=== PATIENT | male | born 1940 | race Caucasian/White ===

== ENCOUNTER 2017-01-04 14:45 | Inpatient (IN) | payer MEDICARE ==
[~2017-01-04] VITALS: Ht 175.3 cm; Wt 79.2 kg
[2017-01-10] MEDS ORDERED: FLUT1INH INH (11:48)
[2017-01-10] MEDS ORDERED: POTA10TA2 PO (11:48)
[2017-01-10] MEDS ORDERED: DORZ2SOL EACH EYE (11:48)
[2017-01-10] MEDS ORDERED: BRIM0.155 EACH EYE (11:48)
[2017-01-10] MEDS ORDERED: ROSU10 PO (11:48)
[2017-01-10] MEDS ORDERED: OCUVTAB4 PO (11:48)
[2017-01-10] MEDS ORDERED: ZOLP5TAB3 PO (11:48)
[2017-01-10] MEDS ORDERED: TRAV0.00 EACH EYE (11:48)
[2017-01-10] MEDS ORDERED: TIOT12.9 INH (11:48)
[2017-01-10] MEDS ORDERED: FURO20TA PO (11:48)
[2017-01-10] MEDS ORDERED: ALBU1AER5 INH (11:48)
[2017-01-10] MEDS ORDERED: MULT1TAB84 PO (11:48)
[2017-01-10] MEDS ORDERED: PROC90TA PO (11:48)
[2017-01-10] MEDS ORDERED: FLUT250A INH (11:48)
[2017-01-11] MEDS ORDERED: DEXAMETHASONE SOD PHOS 20 MG/5 ML VIAL ONE (05:38)
[2017-01-11] MEDS ORDERED: ceFAZolin 2 GM PREMIX 50 ML ONE (05:38)
[2017-01-11] MEDS ORDERED: SODIUM CHLOR 0.9% 250 ML INJ 250 ML ONE (05:38)
[2017-01-11] MEDS ORDERED: VANCOMYCIN HCL 1000 MG VIAL ONE (05:39)
[2017-01-11 05:55] VITALS: BP 150/76; PULSE 85; RESP 22; TEMP 97.8; O2SAT 94
[2017-01-11] MEDS ORDERED: GENTAMICIN SULFATE 80 MG/2 ML VIAL ONE (06:14)
[2017-01-11] MEDS ORDERED: TRANEXAMIC ACID INJ 786 MG in SODIUM CHLORIDE 0.9% INJ 100 ML IV SCH ×2 (06:30→10:00)
[2017-01-11] MEDS ORDERED: ceFAZolin 2 GM PREMIX 50 ML IV SCH (06:30)
[2017-01-11] MEDS ORDERED: VANCOMYCIN 1000 MG/NS 250 ML (for <70 kg) IV SCH ×2 (06:30)
[2017-01-11] MEDS ORDERED: EXPAREL PERI-ARTICULAR INJECTION (TOTAL VOL. 60 ML) P-ARTICULR SCH ×2 (06:30)
[2017-01-11] MEDS ORDERED: POVIDONE IODINE 7.5% SCRUB 118 ML BOTTLE TOPICAL SCH (06:30)
[2017-01-11] MEDS ORDERED: MIDAZOLAM HCL 2 MG/2 ML VIAL ONE (06:38)
[2017-01-11] MEDS ORDERED: FAMOTIDINE 20 MG/2 ML VIAL ONE (06:38)
[2017-01-11] MEDS ORDERED: fentaNYL CITRATE 250 MCG/5 ML AMP ONE (06:43)
[2017-01-11] MEDS ORDERED: ACETAMINOPHEN 1000 MG/100 ML VIAL IV ONE (06:43)
--- NOTE | 2017-01-11 06:44 | HHI.DCPOC ---
Discharge Care Plan Diagnosis: (1) Status post total hip replacement, right (2) Osteoarthritis of right hip Your Health Problems Are: Difficulty with ADL Goals to Promote Your Health * To prevent worsening of your condition and complications * To maintain your health at the optimal level Directions to Meet Your Goals Take your medications as prescribed Follow your dietary instruction Follow activity as directed Keep your appointments as scheduled Take your immunizations and boosters as scheduled If your symptoms worsen call your PCP, if no PCP go to Urgent Care Center or Emergency Room Smoking is Dangerous to Your Health. Avoid second hand smoke Call the 24-hour hour crisis hotline for domestic abuse at [facility] January 11, 2017 06:44
[2017-01-11] MEDS ORDERED: MIDAZOLAM HCL 5 MG/5 ML VIAL ONE (06:45)
--- NOTE | 2017-01-11 06:45 | HHI.FF ---
Face to Face Verification Diagnosis: (1) Osteoarthritis of right hip (2) Status post total hip replacement, right Physical Therapy Gait training, Transfer training, bed to chair Hip: Total hip Right LE Weight Bearing: WB as tolerated Right LE Range of Motion: Active ROM Nursing Nursing: Madhuri teaching, Dressing changes Dressing Changes: Daily dressing change I have seen patient Carlitos Alves on 01/11/17. My clinical findings support the need for the requested home health care services because: Limited ability to care for self High risk of falls I certify that my clinical findings support that this patient is homebound because: Post-op weakness Unsteady gait/balance [place] [facility] January 11, 2017 06:45
[2017-01-11] MEDS ORDERED: COMMODE 3-IN-11 MIS (06:47)
[2017-01-11] MEDS ORDERED: WALKER WHEELS/F1 MIS (06:47)
[2017-01-11] MEDS ORDERED: CHLORHEXIDINE GLUCONATE 2 % 1 PACK (2 CLOTHS) TOPICAL PRN (07:30)
[2017-01-11] MEDS ORDERED: POVIDONE IODINE 5% (ANTISEPSIS KIT) 4 APPLICATIONS EACH NARE PRN (07:30)
[2017-01-11] MEDS ORDERED: METOPROLOL TARTRATE 25 MG TAB PO PRN (07:30)
[2017-01-11] MEDS ORDERED: INSULIN HUMAN REGULAR 1,000 UNITS/10 ML VIAL SQ PRN (07:30)
[2017-01-11] MEDS ORDERED: LACTATED RINGER'S 1000 ML IV PRN (07:30)
[2017-01-11] MEDS ORDERED: SODIUM CHLORID 0.9% 500 ML IV PRN (07:30)
[2017-01-11] MEDS ORDERED: ALUMINUM/MAGNESIUM/SIMETH 30 ML CUP PO PRN (09:00)
[2017-01-11] MEDS ORDERED: MAGNESIUM HYDROXIDE SUSP 30 ML CUP PO PRN (09:00)
[2017-01-11] MEDS: TIOTROPIUM BROMIDE 18 MCG INH INH SCH (09:00)
[2017-01-11] MEDS ORDERED: ZOLPIDEM TARTRATE 5 MG TAB PO PRN (09:00)
[2017-01-11] MEDS ORDERED: BISACODYL 10 MG SUPP RECTAL PRN (09:00)
[2017-01-11] MEDS: POTASSIUM CHLORIDE 10 MEQ CONTROLLED RELEASE TAB PO SCH ×2 (09:00→20:22)
[2017-01-11] MEDS ORDERED: Post-op Orders (for Pharmacy) MISC XX ONE (09:00)
[2017-01-11] MEDS ORDERED: SODIUM CHLORIDE 0.9% FLUSH 5 ML FLUSH IVF PRN (09:00)
[2017-01-11] MEDS ORDERED: ALBUTEROL SULFATE 90 MCG/ACT HFA 18 GM INHALER INH PRN (09:00)
[2017-01-11] MEDS: SODIUM CHLORIDE 0.9% FLUSH 5 ML FLUSH IVF SCH ×2 (09:00→20:21)
[2017-01-11] MEDS: FLUTICASONE 100 MCG/VILANTEROL 25 MCG INHALER INH SCH (09:00)
[2017-01-11] MEDS ORDERED: ONDANSETRON HCL 4 MG/2 ML VIAL IVP PRN (09:00)
[2017-01-11] MEDS ORDERED: NALOXONE HCL 0.4 MG/ML AMP IV PRN (09:00)
[2017-01-11] MEDS: FUROSEMIDE 20 MG TAB PO SCH ×2 (09:00→20:22)
[2017-01-11] MEDS: BRIMONIDINE TARTRATE 0.15% OPHT SOLN 5 ML BTL EACH EYE SCH ×2 (09:00→20:21)
[2017-01-11] MEDS ORDERED: FLUTICASONE 250 MCG INH SCH (09:00)
[2017-01-11] MEDS ORDERED: ACETAMINOPHEN/HYDROcodone 325 MG/5 MG TAB PO PRN (09:00)
[2017-01-11] MEDS ORDERED: MORPHINE SULFATE 4 MG/ML INJ IV PUSH PRN (09:00)
[2017-01-11] MEDS: DORZOLAMIDE 2% OPTH SOLN 200 DROP/10 ML BTLO EACH EYE SCH ×2 (09:00→20:21)
[2017-01-11] MEDS ORDERED: diphenhydrAMINE HCL 50 MG/ML VIAL IV PRN (09:00)
--- NOTE | 2017-01-11 09:01 | PD.OP ---
cc: Chandan Benoit MD Operative Report Date of Surgery: January 11, 2017 Preoperative Diagnosis: Right hip osteoarthritis Postoperative Diagnosis: Same Procedure: Right total hip arthroplasty Anesthesia: Spinal Surgeon: Chandan Benoit Statistical Analyst(s): SETH Aviles The surgical procedure was assisted by my Advanced Registered Nurse Practitioner. My ALLIANCE MANAGER presence was necessary throughout this case for the manipulation and positioning of the surgical extremity. My ALLIANCE MANAGER was assisting me throughout the duration of this procedure. The skill set of an Advance Registered Nurse Practitioner was medically necessary to complete this procedure. During the surgical case, the surgical instrument technician was working at the back table and the Advance Registered Nurse Practitioner was directly assisting me. Operation and Findings: IMPLANT DESCRIPTION: 1. [place] Gription Cup, acetabular size 54. 2. [place] AltrX polyethylene, neutral. 4. [place] femoral stem size 12, no collar, standard offset. 5. Femoral head/neck metal, 36, +8.5. ESTIMATED BLOOD LOSS: 250 cc. JUSTIFICATION FOR PROCEDURE: The patient has end-stage osteoarthritis to the hip. There is an attached conservative measures pathway form in the chart that describes the nonoperative measures that were undertaken prior to consideration of surgical management. The patient understood the risks and benefits of surgical management. See my office notes for further details. PROCEDURE: The patient was brought back to the operative theatre. Adequate anesthesia was obtained. The patient received intravenous with vancomycin and Ancef. The patient was carefully placed on the operative table. The lower extremity was prepped and draped in the usual sterile fashion. Fluoroscopic images were obtained. We made a standard anterior incision over the hip. We dissected through the TFL fascia, exposing the anterior capsule. Arthrotomy was performed in a T-shaped fashion. The capsule was tagged with a #2 FiberWire. End-stage arthritis was identified. Osteotomy was performed through the femoral neck exposing the acetabulum. Remnants of the labrum were resected and osteophytes were removed. We sequentially reamed the acetabulum. We trialed the hip and placed the final cup into position. This was done under fluoroscopic guidance to obtain the appropriate inclination and anteversion. A manhole cover was placed into the acetabular component. We then placed the final polyethylene into position and confirmed that it was well seated. Capsular attachments on the calcar and the inner aspect of the greater trochanter were resected. On the proximal aspect of the femur we used a rongeur , box osteotome, canal finder, sequential broaches and lateralizing rasp. We calcar planed the proximal femur. Then thoroughly irrigated the wound. We trialed the hip with the appropriate size stem. We placed the final stem in to position and trialed again. The hip was stable while it was externally rotated 70 degrees when the leg was lowered to the floor. The final head was applied, and final fluoroscopic images were obtained. The wound was thoroughly irrigated again. Interarticular injection of liposomal bupivacaine was given. The capsule was closed with #2 FiberWire and #1 Vicryl. The deep fascia was closed with a #2 Stratafix, followed by 2-0 Vicryl in the skin and [place]. Postop plan is to weight-bear as tolerated. DVT prophylaxis will be performed with Erin, JAYDE wilkes, early mobilization, and Lovenox followed by aspirin. Chandan Benoit MD January 11, 2017 09:01
[2017-01-11] MEDS ORDERED: ENOX40P SQ (09:03)
[2017-01-11] MEDS ORDERED: ASPI325T PO (09:03)
[2017-01-11] MEDS ORDERED: NORC5TAB PO (09:03)
--- NOTE | 2017-01-11 09:58 | RADRPT ---
EXAM DATE/TIME: 01/11/2017 09:25 [facility] COMPARISON: No previous studies available for comparison. INDICATIONS : Post op right hip surgery. MEDICAL HISTORY : None. SURGICAL HISTORY : None. ENCOUNTER: Initial ACUITY: 1 day PAIN SCORE: 0/10 LOCATION: Right Hip and pelvis. FINDINGS: Examination of the right hip was performed with AP Pelvis. Right hip prosthesis. Postsurgical change s. Vascular calcifications. Degenerative changes of the lumbar spine and left hip. CONCLUSION: Right hip prosthesis. Drew Tejada MD on January 11, 2017 at 9:56 Board Certified Radiologist. This report was verified electronically.
[2017-01-11] MEDS: SODIUM CHLOR 0.9% 1000 ML INJ 1,000 ML IV SCH ×2 (10:00→18:57)
[2017-01-11 12:00] VITALS: BP 108/53; PULSE 71; RESP 16; TEMP 98.3; O2SAT 94
[2017-01-11] MEDS ORDERED: ONDANSETRON HCL 4 MG/2 ML VIAL IV PUSH ONE (12:00)
[2017-01-11] MEDS ORDERED: PROPOFOL 200 MG/20 ML AMP IV ONE (12:00)
--- NOTE | 2017-01-11 12:02 | PD.CONS ---
HPI Service [facility] Consult Requested By Reason for Consult medical management Primary Care Physician Andrew Smith MD Diagnoses: History of Present Illness patient is a 76 y/o male with history of COPD, hypertension,dyslipidemia and osteoarthritis who underwent right total hip arthroplasty today. at the time of my evaluation he was resting comfortably with no distress. pain to the right hip is mild.he denies any chest pain, sob or dizziness at this time. Review of Systems Constitutional: DENIES: Fever, Weight loss, Chills, Night Sweats Eyes: DENIES: Blurred vision, Diplopia, Vision loss, Double Vision Ears, nose, mouth, throat: DENIES: Tinnitus, Vertigo, Throat pain, Epistaxis Respiratory: DENIES: Apneas, Cough, Snoring, Wheezing, Hemoptysis, Sputum production, Shortness of breath Cardiovascular: DENIES: Chest pain, Palpitations, Syncope, Dyspnea on Exertion , PND, Lower Extremity Edema, Orthopnea, Claudication Gastrointestinal: DENIES: Abdominal pain, Black stools, Bloody stools, Constipation, Diarrhea, Nausea, Vomiting, Difficulty Swallowing, Anorexia Genitourinary: DENIES: Urinary frequency, Urgency, Hematuria, Dysuria Musculoskeletal: COMPLAINS OF: Joint pain (right hip), DENIES: Muscle aches, Stiffness, Joint Swelling Integumentary: DENIES: Rash Neurologic: DENIES: Abnormal gait, Headache, Localized weakness, Paresthesias, Seizures, Speech Problems, Tremor, Poor Balance Psychiatric: DENIES: Anxiety, Confusion, Mood changes, Depression, Hallucinations, Agitation, Suicidal Ideation, Homicidal Ideation, Delusions Past Family Social History Allergies: Coded Allergies: No Known Allergies (Unverified , 01/10/17) Past Medical History osteoarthritis COPD hypertension dyslipidemia Past Surgical History cholecystectomy tonsillectomy Reported Medications breo ellipta escitalopram flovent furosemide nifedipine potassium chloride proair rosuvastatin spiriva travatan dorzolamide brimonidine Active Ordered Medications Current Medications Dexamethasone Sodium Phosphate 20 mg 20 mg STK-MED ONCE .ROUTE Last administered on 01/11/17 05:54; Start 01/11/17 at 05:38; Stop 01/11/17 at 05:39 ; Status DC Cefazolin Sodium/ Dextrose 50 ml @ As Directed STK-MED ONCE .ROUTE Last administered on 01/11/17 06:00; Start 01/11/17 at 05:38; Stop 01/11/17 at 05:39 ; Status DC Sodium Chloride (NS 250 ml Inj) 250 ml @ As Directed STK-MED ONCE .ROUTE Last administered on 01/11/17 06:06; Start 01/11/17 at 05:38; Stop 01/11/17 at 05:39 ; Status DC Vancomycin HCl (Vancomycin Inj) 1,000 mg STK-MED ONCE .ROUTE Last administered on 01/11/17 06:05; Start 01/11/17 at 05:39; Stop 01/11/17 at 05:40; Status DC Gentamicin Sulfate (Gentamicin Inj) 240 mg STK-MED ONCE .ROUTE Last administered on 01/11/17 07:33; Start 01/11/17 at 06:14; Stop 01/11/17 at 06:15 ; Status DC Povidone Iodine 1 applic 1 applic ONCE TOPICAL Last administered on 01/11/17 06:00; Start 01/11/17 at 06:30; Stop 01/14/17 at 06:29 Cefazolin Sodium/ Dextrose 50 ml @ 100 mls/hr BALLOON TESTER IV ; Start 01/11/17 at 06:30; Stop 01/14/17 at 06:29 Vancomycin HCl 1000 mg/Sodium Chloride 250 ml @ 250 mls/hr BALLOON TESTER IV ; Start 01/11/17 at 06:30; Stop 01/14/17 at 06:29 Tranexamic Acid 786 mg/Sodium Chloride 107.86 ml @ 200 mls/ hr ONCE IV Last administered on 01/11/17 07:16; Start 01/11/17 at 06:30; Stop 01/11/17 at 13:00 Bupivacaine Liposome/Sodium Chloride (Exparel Pf 1.3% Inj/NS Inj) 60 ml @ 120 mls/hr ONCE P-ARTICULR Last administered on 01/11/17 07:33; Start 01/11/17 at 06:30; Stop 01/11/17 at 13:00 Midazolam HCl (Versed Inj) 2 mg STK-MED ONCE .ROUTE Last administered on 06:40; Start 01/11/17 at 06:38; Stop 01/11/17 at 06:39; Status DC Famotidine (Pepcid Inj) 20 mg STK-MED ONCE .ROUTE Last administered on 06:39; Start 01/11/17 at 06:38; Stop 01/11/17 at 06:39; Status DC Acetaminophen (Ofirmev Inj) 1,000 mg STK-MED ONCE IV ; Start 01/11/17 at 06:43; Stop 01/11/17 at 06:44; Status DC Fentanyl Citrate (fentaNYL INJ) 250 mcg STK-MED ONCE .ROUTE ; Start 01/11/17 at 06:43; Stop 01/11/17 at 06:44; Status DC Fentanyl Citrate (fentaNYL INJ) 100 mcg STK-MED ONCE .ROUTE ; Start 01/11/17 at 06:43; Stop 01/11/17 at 06:44; Status DC Midazolam HCl 5 mg 5 mg STK-MED ONCE .ROUTE ; Start 01/11/17 at 06:45; Stop 06/20 at 06:46; Status DC Lactated Ringer's 1,000 ml @ 30 mls/hr Q24H PRN IV SEE LABEL COMMENTS Last administered on 01/11/17 07:00; Start 01/11/17 at 07:30; Stop 01/14/17 at 07:29 Sodium Chloride (NS 500 ml Inj) 500 ml @ 30 mls/hr [id number] PRN IV SEE LABEL COMMENTS; Start 01/11/17 at 07:30; Stop 01/14/17 at 07:29 Metoprolol Tartrate (Lopressor) 25 mg BALLOON TESTER PRN PO SEE LABEL COMMENTS; Start 01/11/17 at 07:30; Stop 01/14/17 at 07:29 Povidone Iodine (Betadine 5% Antisepsis Kit) 1 applic BALLOON TESTER PRN EACH NARE SEE LABEL COMMENTS Last administered on 01/11/17 06:00; Start 01/11/17 at 07:30 ; Stop 01/14/17 at 07:29 Chlorhexidine Gluconate (Chlorhexidine 2% Cloth) 3 pack BALLOON TESTER PRN TOPICAL SEE LABEL COMMENTS Last administered on 01/11/17 05:30; Start 01/11/17 at 07:30 ; Stop 01/14/17 at 07:29 Insulin Human Regular (NovoLIN R INJ) See Protocol Table ... BALLOON TESTER PRN SQ SEE PROTOCOL TABLE; Start 01/11/17 at 07:30; Stop 01/14/17 at 07:29 Brimonidine Tartrate (Alphagan P 0.15% Opth Soln) 1 drop BID EACH EYE ; Start at 09:00 Dorzolamide HCl (Trusopt 2% Opth Soln) 1 drop BID EACH EYE ; Start 01/11/17 at 09:00 Fluticasone/ Vilanterol (Breo Ellipta 100-25 Inh) 1 puff DAILY INH ; Start 01/11 at 09:00 Furosemide (Lasix) 20 mg BID PO ; Start 01/11/17 at 09:00 Nifedipine (Procardia Xl) 90 mg HS PO ; Start 01/11/17 at 21:00 Potassium Chloride (KCl) 20 meq BID PO ; Start 01/11/17 at 09:00 Zolpidem Tartrate (Ambien) 5 mg HS PRN PO INSOMNIA; Start 01/11/17 at 09:00 Albuterol Sulfate (Ventolin Hfa Inh) 2 puff Q6H PRN INH SHORTNESS OF BREATH; Start 01/11/17 at 09:00 Non-Formulary Medication 250 mcg BID INH ; Start 01/11/17 at 09:00; Status UNV Atorvastatin Calcium (Lipitor) 20 mg HS PO CM; Start 01/11/17 at 21:00 Non-Formulary Medication 2 puff DAILY INH COPD; Start 01/11/17 at 09:00; Status UNV Latanoprost 1 drop 1 drop HS EACH EYE Glaucoma; Start 01/11/17 at 21:00 Sodium Chloride (NS 1000 ml Inj) 1,000 ml @ 100 mls/hr Q10H IV Last administered on 01/11/17t 10:00; Start 01/11/17 at 08:57 IV Flush (NS Flush) 2 ml UNSCH PRN IVF FLUSH AFTER USING IV ACCESS; Start 01/11 at 09:00 IV Flush 2 ml 2 ml BID IVF ; Start 01/11/17 at 09:00 Cefazolin Sodium/ Sodium Chloride (Ancef Inj/NS Inj) 100 ml @ 200 mls/hr Q6H IV ; Start 01/11/17 at 13:00; Stop 01/12/17 at 01:29 Miscellaneous Information (Post-op Orders (for Pharmacy)) STAT ONCE XX ; Start 01/11/17 at 09:00; Stop 01/11/17 at 10:17; Status DC Dexamethasone Sodium Phosphate (Decadron Inj) 10 mg ONCE ONCE IV ; Start at 07:45; Stop 01/12/17 at 07:46 Enoxaparin Sodium (Lovenox Inj) 40 mg Q24H SQ ; Start 01/12/17 at 08:00; Stop at 08:01 Acetaminophen/ Hydrocodone Bitart ([place] 5-325 Mg) 1 tab Q4H PRN PO PAIN LESS THAN 5 ON SCALE; Start 01/11/17 at 09:00 Acetaminophen/ Hydrocodone Bitart 2 tab 2 tab Q4H PRN PO PAIN SCALE 5 TO 10; Start 01/11/17 at 09:00 Tranexamic Acid/ Sodium Chloride (Cyklokapron Inj/ NS Inj) 107.86 ml @ 200 mls / hr UNSCH IV Last administered on 01/11/17t 10:37; Start 01/11/17 at 10:00; Stop 01/11/17 at 12:00 Multivitamins/ Minerals Therapeutic (Theragran M Tab) 1 tab BID PO ; Start 01/12 at 21:00; Stop 03/13/17 at 20:59 Ondansetron HCl (Zofran Inj) 4 mg Q6H PRN IVP NAUSEA OR VOMITING; Start at 09:00 Docusate Sodium (Colace) 100 mg BID PO ; Start 01/12/17 at 21:00 Al Hydrox/Mg Hydrox/Simethicone (Mag-Al Plus Susp Liq) 30 ml Q6H PRN PO INDIGESTION; Start 01/11/17 at 09:00 Bisacodyl (Dulcolax Supp) 10 mg DAILY PRN RECTAL CONSTIPATION; Start 01/11/17 at 09:00 Magnesium Hydroxide (Milk Of Magnesia Liq) 30 ml DAILY PRN PO CONSTIPATION; Start 01/11/17 at 09:00 Naloxone HCl (Narcan Inj) 0.4 mg UNSCH PRN IV RESPIRATORY RATE LESS THAN 10; Start 01/11/17 at 09:00 Diphenhydramine HCl (Benadryl Inj) 25 mg Q6H PRN IV ITCHING; Start 01/11/17 at 09:00 Morphine Sulfate (Morphine Inj) 2 mg Q3H PRN IV PUSH pain greater than 5; Start 01/11/17 at 09:00 Family History not relevant to this consult. Social History quit smoking years ago- drinks occasionally. Physical Exam Vital Signs Vital Signs Date Time Temp Pulse Resp B/P Pulse Ox O2 Delivery O2 Flow Rate FiO2 01/11/17 10:20 66 14 114/69 95 Nasal Cannula 2 01/11/17 10:00 67 14 115/65 95 Nasal Cannula 2 01/11/17 09:45 69 14 116/68 88 Room Air 01/11/17 09:30 67 14 111/67 91 Room Air 01/11/17 09:23 97.5 72 14 110/70 95 Room Air 01/11/17 06:39 94 01/11/17 05:55 97.8 85 22 150/76 94 Physical Exam GENERAL: This is a well-nourished, well-developed patient, in no apparent distress. SKIN: No rashes, ecchymoses or lesions. Cool and dry. HEAD: Atraumatic. Normocephalic. No temporal or scalp tenderness. EYES: Pupils equal round and reactive. Extraocular motions intact. No scleral icterus. No injection or drainage. ENT: Nose without bleeding, purulent drainage or septal hematoma. Throat without erythema, tonsillar hypertrophy or exudate. Uvula midline. Airway patent. NECK: Trachea midline. No JVD or lymphadenopathy. Supple, nontender, no meningeal signs. CARDIOVASCULAR: Regular rate and rhythm without murmurs, gallops, or rubs. RESPIRATORY: Clear to auscultation. Breath sounds equal bilaterally. No wheezes , rales, or rhonchi. GASTROINTESTINAL: Abdomen soft, non-tender, nondistended. No hepato-splenomegaly , or palpable masses. No guarding. MUSCULOSKELETAL: Extremities without clubbing, cyanosis, or edema. No joint tenderness, effusion, or edema noted. No calf tenderness. Negative Homans sign bilaterally. NEUROLOGICAL: Awake and alert. Cranial nerves II through XII intact. Motor and sensory grossly within normal limits. Five out of 5 muscle strength in all muscle groups. Normal speech. Laboratory Laboratory Tests Test 01/11/17 05:50 Blood Type B POSITIVE Antibody Screen NEGATIVE Blood Bank Comment Imaging Last Impressions Hip and Pelvis X-Ray 01/11/17 0857 Signed Impressions: Service Date/Time: Wednesday, January 11, 2017 09:25 - CONCLUSION: Right hip prosthesis. Drew Tejada MD Assessment and Plan Assessment and Plan A/P - osteoarthritis- s/p right total hip arthroplasty continue with pain control and rehab efforts- management per ortho -COPD with no exacerbation; resumed Breo Ellipta- albuterol as needed -hypertension; on Nifedipine and lasix- will monitor and adjust the regimen as needed -dyslipidemia; on statin -DVT prophylaxis with lovenox- per ortho. thank you for the consult. Discussed Condition With the patient. Paul Clarke MD January 11, 2017 12:02
--- NOTE | 2017-01-11 12:57 | RADRPT ---
EXAM DATE/TIME: 01/11/2017 07:19 [facility] COMPARISON: No previous studies available for comparison. INDICATIONS : Right total hip replacement. MEDICAL HISTORY : None. SURGICAL HISTORY : None. ENCOUNTER: Initial ACUITY: 1 day PAIN SCORE: Non-responsive. LOCATION: Right hip. FINDINGS: A two view examination of the right hip was performed. Right hip arthroplasty. CONCLUSION: Right hip arthroplasty. Drew Tejada MD on January 11, 2017 at 12:54 Board Certified Radiologist. This report was verified electronically.
[2017-01-11 16:00] VITALS: BP 127/75; PULSE 85; RESP 20; TEMP 96.3; O2SAT 92
[2017-01-11] MEDS: ACETAMINOPHEN/HYDROcodone 325 MG/5 MG TAB PO PRN ×2 (18:38→23:17)
[2017-01-11 20:15] VITALS: BP 138/79; PULSE 81; RESP 17; TEMP 97.4; O2SAT 93
[2017-01-11] MEDS ORDERED: LATANOPROST 0.005% OPHT SOLN 2.5 ML BTL EACH EYE SCH (21:00)
[2017-01-11] MEDS ORDERED: NIFEdipine 90 MG SUSTAINED RELEASE TAB PO SCH (21:00)
[2017-01-11] MEDS ORDERED: ATORVASTATIN 20 MG TAB PO SCH (21:00)
[2017-01-12 00:40] VITALS: BP 147/79; PULSE 72; RESP 17; TEMP 96.5; O2SAT 93
[2017-01-12 04:20] VITALS: BP 121/65; PULSE 68; RESP 17; TEMP 97.4; O2SAT 91
[2017-01-12] MEDS: SODIUM CHLOR 0.9% 1000 ML INJ 1,000 ML IV SCH (04:57)
[2017-01-12 05:03] LABS: HEMATOCRIT 34.9 % (39.0-51.0); MEAN CORPUSCULAR HEMOGLOBIN 31.3 PG (27.0-34.0); MEAN CORPUSCULAR HGB CONC 32.9 % (32.0-36.0); PLATELET COUNT 204 TH/MM3 (150-450); RED BLOOD COUNT 3.68 MIL/MM3 (4.50-5.90); RED CELL DISTRIBUTION WIDTH 14.2 % (11.6-17.2); REVIEW FLAG FINAL; WHITE BLOOD COUNT 10.9 TH/MM3 (4.0-11.0)
[2017-01-12] MEDS: TIOTROPIUM BROMIDE 18 MCG INH INH SCH (06:24)
[2017-01-12] MEDS: FLUTICASONE 100 MCG/VILANTEROL 25 MCG INHALER INH SCH (06:46)
[2017-01-12] MEDS: ACETAMINOPHEN/HYDROcodone 325 MG/5 MG TAB PO PRN (06:50)
[2017-01-12 07:30] VITALS: BP 144/71; PULSE 92; RESP 19; TEMP 95.9; O2SAT 90
[2017-01-12] MEDS ORDERED: DEXAMETHASONE SOD PHOS 20 MG/5 ML VIAL IV ONE (07:45)
[2017-01-12] MEDS ORDERED: ENOXAPARIN SODIUM 40 MG/0.4 ML SYRINGE SQ SCH (08:00)
[2017-01-12] MEDS: POTASSIUM CHLORIDE 10 MEQ CONTROLLED RELEASE TAB PO SCH (08:21)
[2017-01-12] MEDS: FUROSEMIDE 20 MG TAB PO SCH (08:21)
[2017-01-12] MEDS: DORZOLAMIDE 2% OPTH SOLN 200 DROP/10 ML BTLO EACH EYE SCH (08:23)
[2017-01-12] MEDS: BRIMONIDINE TARTRATE 0.15% OPHT SOLN 5 ML BTL EACH EYE SCH (08:23)
[2017-01-12] MEDS: SODIUM CHLORIDE 0.9% FLUSH 5 ML FLUSH IVF SCH (08:35)
[2017-01-12 10:55] VITALS: O2SAT 94
--- NOTE | 2017-01-12 11:29 | HHI.PR ---
Subjective Remarks resting comfortably with no distress. although had to be placed on oxygen via N/C. pain is controlled. had a BM. no other complaints. d/w the RN. Objective Vitals Vital Signs Date Time Temp Pulse Resp B/P Pulse Ox O2 Delivery O2 Flow Rate FiO2 01/12/17 10:55 94 Nasal Cannula 3.00 01/12/17 07:30 95.9 92 19 144/71 90 01/12/17 04:20 97.4 68 17 121/65 91 01/12/17 00:40 96.5 72 17 147/79 93 01/11/17 20:15 97.4 81 17 138/79 93 01/11/17 16:00 96.3 85 20 127/75 92 01/11/17 12:00 98.3 71 16 108/53 94 I/O 01/11/17 01/11/17 01/11/17 01/12/17 01/12/17 01/12/17 07:00 15:00 23:00 07:00 15:00 23:00 Intake Total 1540 ml 1739 ml 244 ml 480 ml Output Total 600 ml Balance 940 ml 1739 ml 244 ml 480 ml Intake Oral 240 ml 960 ml 480 ml IV Total 200 ml 779 ml 244 ml Other 1100 ml Output Urine Total 400 ml Estimated Blood Loss 200 ml # Voids 1 1 1 # Bowel Movements 1 0 0 Result Diagram: 01/12/17 0436 Imaging Last Impressions Hip and Pelvis X-Ray 01/11/17 0857 Signed Impressions: Service Date/Time: Wednesday, January 11, 2017 09:25 - CONCLUSION: Right hip prosthesis. Drew Tejada MD Hip X-Ray 01/11/17 0000 Signed Impressions: Service Date/Time: Wednesday, January 11, 2017 07:19 - CONCLUSION: Right hip arthroplasty. Drew Tejada MD Objective Remarks GENERAL: This is a well-nourished, well-developed patient, in no apparent distress. CARDIOVASCULAR: Regular rate and regular rhythm without murmurs, gallops, or rubs. RESPIRATORY: Clear to auscultation. Breath sounds equal bilaterally. No wheezes , rales, or rhonchi. GASTROINTESTINAL: Abdomen soft, non-tender, nondistended. Normal, active bowel sounds MUSCULOSKELETAL: Extremities without clubbing, cyanosis, or edema. NEURO: Alert & Oriented x4 to person, place, time, situation. Moves all ext x4 Medications and IVs Current Medications Dexamethasone Sodium Phosphate 20 mg 20 mg STK-MED ONCE .ROUTE Last administered on 01/11/17 05:54; Start 01/11/17 at 05:38; Stop 01/11/17 at 05:39 ; Status DC Cefazolin Sodium/ Dextrose 50 ml @ As Directed STK-MED ONCE .ROUTE Last administered on 01/11/17 06:00; Start 01/11/17 at 05:38; Stop 01/11/17 at 05:39 ; Status DC Sodium Chloride (NS 250 ml Inj) 250 ml @ As Directed STK-MED ONCE .ROUTE Last administered on 01/11/17 06:06; Start 01/11/17 at 05:38; Stop 01/11/17 at 05:39 ; Status DC Vancomycin HCl (Vancomycin Inj) 1,000 mg STK-MED ONCE .ROUTE Last administered on 01/11/17 06:05; Start 01/11/17 at 05:39; Stop 01/11/17 at 05:40; Status DC Gentamicin Sulfate (Gentamicin Inj) 240 mg STK-MED ONCE .ROUTE Last administered on 01/11/17 07:33; Start 01/11/17 at 06:14; Stop 01/11/17 at 06:15 ; Status DC Povidone Iodine 1 applic 1 applic ONCE TOPICAL Last administered on 01/11/17 06:00; Start 01/11/17 at 06:30; Stop 01/14/17 at 06:29 Cefazolin Sodium/ Dextrose 50 ml @ 100 mls/hr EVENT MARKETING INTERN IV ; Start 01/11/17 at 06:30; Stop 01/14/17 at 06:29 Vancomycin HCl 1000 mg/Sodium Chloride 250 ml @ 250 mls/hr EVENT MARKETING INTERN IV ; Start 01/11/17 at 06:30; Stop 01/14/17 at 06:29 Tranexamic Acid 786 mg/Sodium Chloride 107.86 ml @ 200 mls/ hr ONCE IV Last administered on 01/11/17 07:16; Start 01/11/17 at 06:30; Stop 01/11/17 at 13:00 ; Status DC Bupivacaine Liposome/Sodium Chloride (Exparel Pf 1.3% Inj/NS Inj) 60 ml @ 120 mls/hr ONCE P-ARTICULR Last administered on 01/11/17 07:33; Start 01/11/17 at 06:30; Stop 01/11/17 at 13:00; Status DC Midazolam HCl (Versed Inj) 2 mg STK-MED ONCE .ROUTE Last administered on 06:40; Start 01/11/17 at 06:38; Stop 01/11/17 at 06:39; Status DC Famotidine (Pepcid Inj) 20 mg STK-MED ONCE .ROUTE Last administered on 06:39; Start 01/11/17 at 06:38; Stop 01/11/17 at 06:39; Status DC Acetaminophen (Ofirmev Inj) 1,000 mg STK-MED ONCE IV ; Start 01/11/17 at 06:43; Stop 01/11/17 at 06:44; Status DC Fentanyl Citrate (fentaNYL INJ) 250 mcg STK-MED ONCE .ROUTE ; Start 01/11/17 at 06:43; Stop 01/11/17 at 06:44; Status DC Fentanyl Citrate (fentaNYL INJ) 100 mcg STK-MED ONCE .ROUTE ; Start 01/11/17 at 06:43; Stop 01/11/17 at 06:44; Status DC Midazolam HCl 5 mg 5 mg STK-MED ONCE .ROUTE ; Start 01/11/17 at 06:45; Stop 06/20 at 06:46; Status DC Lactated Ringer's 1,000 ml @ 30 mls/hr Q24H PRN IV SEE LABEL COMMENTS Last administered on 01/11/17 07:00; Start 01/11/17 at 07:30; Stop 01/14/17 at 07:29 Sodium Chloride (NS 500 ml Inj) 500 ml @ 30 mls/hr [id number] PRN IV SEE LABEL COMMENTS; Start 01/11/17 at 07:30; Stop 01/14/17 at 07:29 Metoprolol Tartrate (Lopressor) 25 mg EVENT MARKETING INTERN PRN PO SEE LABEL COMMENTS; Start 01/11/17 at 07:30; Stop 01/14/17 at 07:29 Povidone Iodine (Betadine 5% Antisepsis Kit) 1 applic EVENT MARKETING INTERN PRN EACH NARE SEE LABEL COMMENTS Last administered on 01/11/17 06:00; Start 01/11/17 at 07:30 ; Stop 01/14/17 at 07:29 Chlorhexidine Gluconate (Chlorhexidine 2% Cloth) 3 pack EVENT MARKETING INTERN PRN TOPICAL SEE LABEL COMMENTS Last administered on 01/11/17 05:30; Start 01/11/17 at 07:30 ; Stop 01/14/17 at 07:29 Insulin Human Regular (NovoLIN R INJ) See Protocol Table ... EVENT MARKETING INTERN PRN SQ SEE PROTOCOL TABLE; Start 01/11/17 at 07:30; Stop 01/14/17 at 07:29 Brimonidine Tartrate (Alphagan P 0.15% Opt Soln) 1 drop BID EACH EYE Last administered on 01/12/17 08:23; Start 01/11/17 at 09:00 Dorzolamide HCl (Trusopt 2% Opt Soln) 1 drop BID EACH EYE Last administered on 01/12/17 08:23; Start 01/11/17 at 09:00 Fluticasone/ Vilanterol (Breo Ellipta 100-25 Inh) 1 puff DAILY INH Last administered on 01/12/17 06:46; Start 01/11/17 at 09:00 Furosemide (Lasix) 20 mg BID PO Last administered on 01/12/17 08:21; Start 06/20 at 09:00 Nifedipine (Procardia Xl) 90 mg HS PO Last administered on 01/11/17 20:23; Start 01/11/17 at 21:00 Potassium Chloride (KCl) 20 meq BID PO Last administered on 01/12/17 08:21; Start 01/11/17 at 09:00 Zolpidem Tartrate (Ambien) 5 mg HS PRN PO INSOMNIA Last administered on 23:17; Start 01/11/17 at 09:00 Albuterol Sulfate (Ventolin Hfa Inh) 2 puff Q6H PRN INH SHORTNESS OF BREATH; Start 01/11/17 at 09:00 Non-Formulary Medication 250 mcg BID INH ; Start 01/11/17 at 09:00; Status UNV Atorvastatin Calcium (Lipitor) 20 mg HS PO CM Last administered on 01/11/17 20: 23; Start 01/11/17 at 21:00 Tiotropium Sylvester (Spiriva Inh) 2 mcg DAILY INH COPD Last administered on 06:24; Start 01/11/17 at 09:00 Latanoprost 1 drop 1 drop HS EACH EYE Glaucoma Last administered on 01/11/17 20 :21; Start 01/11/17 at 21:00 Sodium Chloride (NS 1000 ml Inj) 1,000 ml @ 100 mls/hr Q10H IV Last administered on 01/11/17 10:00; Start 01/11/17 at 08:57 IV Flush (NS Flush) 2 ml UNSCH PRN IVF FLUSH AFTER USING IV ACCESS; Start 01/11 at 09:00 IV Flush 2 ml 2 ml BID IVF Last administered on 01/12/17 08:35; Start at 09:00 Cefazolin Sodium/ Sodium Chloride (Ancef Inj/NS Inj) 100 ml @ 200 mls/hr Q6H IV Last administered on 01/12/17 00:02; Start 01/11/17 at 13:00; Stop at 01:29; Status DC Miscellaneous Information (Post-op Orders (for Pharmacy)) STAT ONCE XX ; Start 01/11/17 at 09:00; Stop 01/11/17 at 10:17; Status DC Dexamethasone Sodium Phosphate (Decadron Inj) 10 mg ONCE ONCE IV Last administered on 01/12/17 08:19; Start 01/12/17 at 07:45; Stop 01/12/17 at 07:46 ; Status DC Enoxaparin Sodium (Lovenox Inj) 40 mg Q24H SQ Last administered on 01/12/17 08 :36; Start 01/12/17 at 08:00; Stop 01/21/17 at 08:01 Acetaminophen/ Hydrocodone Bitart ([place] 5-325 Mg) 1 tab Q4H PRN PO PAIN LESS THAN 5 ON SCALE; Start 01/11/17 at 09:00 Acetaminophen/ Hydrocodone Bitart 2 tab 2 tab Q4H PRN PO PAIN SCALE 5 TO 10 Last administered on 01/12/17 06:50; Start 01/11/17 at 09:00 Tranexamic Acid/ Sodium Chloride (Cyklokapron Inj/ NS Inj) 107.86 ml @ 200 mls / hr UNSCH IV Last administered on 01/11/17t 10:37; Start 01/11/17 at 10:00; Stop 01/11/17 at 12:00; Status DC Multivitamins/ Minerals Therapeutic (Theragran M Tab) 1 tab BID PO ; Start 01/12 at 21:00; Stop 03/13/17 at 20:59 Ondansetron HCl (Zofran Inj) 4 mg Q6H PRN IVP NAUSEA OR VOMITING; Start at 09:00 Docusate Sodium (Colace) 100 mg BID PO ; Start 01/12/17 at 21:00 Al Hydrox/Mg Hydrox/Simethicone (Mag-Al Plus Susp Liq) 30 ml Q6H PRN PO INDIGESTION; Start 01/11/17 at 09:00 Bisacodyl (Dulcolax Supp) 10 mg DAILY PRN RECTAL CONSTIPATION; Start 01/11/17 at 09:00 Magnesium Hydroxide (Milk Of Magnesia Liq) 30 ml DAILY PRN PO CONSTIPATION; Start 01/11/17 at 09:00 Naloxone HCl (Narcan Inj) 0.4 mg UNSCH PRN IV RESPIRATORY RATE LESS THAN 10; Start 01/11/17 at 09:00 Diphenhydramine HCl (Benadryl Inj) 25 mg Q6H PRN IV ITCHING; Start 01/11/17 at 09:00 Morphine Sulfate (Morphine Inj) 2 mg Q3H PRN IV PUSH pain greater than 5; Start 01/11/17 at 09:00 A/P Assessment and Plan A/P - osteoarthritis- s/p right total hip arthroplasty continue with pain control and rehab efforts- management per ortho -COPD resumed Breo Ellipta and spiriva- albuterol as needed noted that was hypoxemic earlier today and now on oxygen via N/C will do the walk test today. -hypertension; on Nifedipine and lasix- will monitor and adjust the regimen as needed -dyslipidemia; on statin -DVT prophylaxis with lovenox- per ortho. Paul Clarke MD January 12, 2017 11:29
[2017-01-12 11:32] VITALS: BP 162/75; PULSE 83; RESP 19; TEMP 95.9; O2SAT 92
[2017-01-12] MEDS ORDERED: RESP: ALBUTEROL 1.25 MG/3 ML NEB (PRN) NEB (11:45)
--- NOTE | 2017-01-12 12:38 | PD.ORT.PN ---
Subjective Post Op Day #: 1 Subjective Remarks The patient is OOB in chair with minimal pain. at bedside. Patient voiding and ambulatory. Patient requesting to go home today. Objective Vitals Vital Signs Date Time Temp Pulse Resp B/P Pulse Ox O2 Delivery O2 Flow Rate FiO2 01/12/17 11:32 95.9 83 19 162/75 92 01/12/17 10:55 94 Nasal Cannula 3.00 01/12/17 07:30 95.9 92 19 144/71 90 01/12/17 04:20 97.4 68 17 121/65 91 01/12/17 00:40 96.5 72 17 147/79 93 01/11/17 20:15 97.4 81 17 138/79 93 01/11/17 16:00 96.3 85 20 127/75 92 I/O 01/11/17 01/11/17 01/11/17 01/12/17 01/12/17 01/12/17 07:00 15:00 23:00 07:00 15:00 23:00 Intake Total 1540 ml 1739 ml 244 ml 480 ml Output Total 600 ml Balance 940 ml 1739 ml 244 ml 480 ml Intake Oral 240 ml 960 ml 480 ml IV Total 200 ml 779 ml 244 ml Other 1100 ml Output Urine Total 400 ml Estimated Blood Loss 200 ml # Voids 1 1 1 # Bowel Movements 1 0 0 Result Diagram: 01/12/17 0436 Procedures Right SHOBHA Objective Remarks The patient's dressing was changed today with scant serosanguineous drainage. Incision is well approximated with surgical clips intact. No redness or s/s of infection. EHL/TA/G intact. 2+ pedal pulse. No calf swelling or tenderness. + SILT. Minimal swelling. Patient's standing O2 saturation is 88-89% on room air. Assessment & Plan Ortho Post Op Day #: 1 Problem List: Assessment and Plan POD #1: Right SHOBHA 1. WBAT RLE 2. Lovenox for DVT prophylaxis 3. Ice to the right hip PRN 4. Stable for discharge home with home health if medically stable today. Patient will need to be discharged home with oxygen. Orlando Pope January 12, 2017 12:38
[2017-01-12] MEDS ORDERED: OXYGENTANK NAS.CANULA (14:20)
[2017-01-12 15:24] VITALS: BP 159/77; PULSE 94; RESP 19; TEMP 95.8; O2SAT 94
[2017-01-12] MEDS ORDERED: DOCUSATE SODIUM 100 MG CAP PO SCH (21:00)
[2017-01-12] MEDS ORDERED: MULTIVITAMINS/MINERALS THERAPEUTIC TAB PO SCH (21:00)
--- NOTE | 2017-01-16 21:29 | HHI.DS ---
Discharge Summary Admission Date January 11, 2017 at 05:10 Discharge Date: January 12, 2017 Admitting Diagnosis OA of the right hip Status post right SHOBHA Diagnosis: (1) Osteoarthritis of right hip Diagnosis: Principal (2) Status post total hip replacement, right Diagnosis: Principal Procedures Right SHOBHA Brief History This is a 76 year old male patient with severe OA of the right hip CBC/BMP: 01/12/17 0436 PE at Discharge The patient's dressing was changed today with scant serosanguineous drainage. Incision is well approximated with surgical clips intact. No redness or s/s of infection. EHL/TA/G intact. 2+ pedal pulse. No calf swelling or tenderness. + SILT. Minimal swelling. Patient's standing O2 saturation is 88-89% on room air. Hospital Course The patient was admitted to the hospital with severe right hip OA to have a right SHOBHA. The patient's surgery went well without complications. The patient is WBAT. The patient was placed on a regular diet post op. The patient was placed on Lovenox for DVT prophylaxis. The patient was discharged home with home health and will f/u with Dr. Benoit in 1-2 weeks. Pt Condition on Discharge: Stable Discharge Disposition: Disch w/ Home Health Serv Discharge Instructions Diet Instructions: As Tolerated, No Restrictions Activities You Can Perform: Weight Bearing as Akilah Activities to Avoid: Strenuous Activity Follow up Referrals: Orthopedics with Chandan Benoit MD [facility]/ with NURSE MANAGER OF COMMUNITY RELATIONS [facility] - [phone] New Medications: Aspirin (Aspirin) 325 Mg Tab 325 MG PO DAILY Start Aspirin after Lovenox is completed. Prevent Blood Clot # 30 Ref 0 TAB Commode 3-in-1 (Commode 3-in-1) 1 Mis Mis 1 EA .ROUTE DIRECTED #1 Ref 0 EA Enoxaparin Inj (Lovenox Inj) 40 Mg/0.4 Ml Syr 40 MG SQ DAILY Start Aspirin after Lovenox is completed. Blood Clot Prevention # 10 Ref 0 SYRINGE Hydrocodone-Acetaminophen (Nahma) 5-325 mg Tab 1-2 TAB PO Q4H PRN PAIN #60 Ref 0 TAB Oxygen tank (Oxygen tank) 1 Ea Tank 2 LITER MELLY.CANULA CONTINUOUS Oxygen Concentrator Portable Gaseous 3 L/min via Nasal Cannula Continuous For 99 months HYPOXEMIA PREVENTION #3 CYLINDER Walker with Front Wheels (Walker with Front Wheels) 1 Mis Mis 1 EA .ROUTE DIRECTED #1 Ref 0 EA Continued Medications: Albuterol Powder Inh (Proair Respiclick Inh) 90 Mcg/Act Aerp 2 PUFF INH Q6H PRN SHORTNESS OF BREATH #1 Ref 0 INHALER Brimonidine Opth Drops (Brimonidine Opth Drops) 0.15% Soln 1 DROP EACH EYE BID Intraocular pressure #1 Ref 0 BOTTLE Dorzolamide Opth Drops (Dorzolamide Opth Drops) 2% Soln 1 DROP EACH EYE BID Glaucoma #1 Ref 0 BOTTLE Fluticasone Powder Inh (Flovent Diskus Inh) 250 Mcg/Blist Aerp 250 MCG INH BID Fluticasone-Vilanterol Inh (Breo Ellipta Inh) 100-25 Mcg/Act Inh 1 PUFF INH DAILY Use daily at the same time. #1 Ref 0 INHALER Furosemide (Furosemide) 20 Mg Tab 20 MG PO BID #60 Ref 0 TAB Multiple Vitamins W/ Minerals (Multivitamin Adults) 1 Tab 1 TAB PO DAILY Nutritional Supplement Ref 0 TAB Multiple Vitamins W/ Minerals (Preservision Areds) 1 Tab 1 TAB PO DAILY Nutritional Supplement Ref 0 TAB Nifedipine ER 24 HR (Procardia XL) 90 Mg Tab 90 MG PO HS #30 Ref 0 TAB Potassium Chloride ER (Potassium Chloride ER) 10 Meq Tab 20 MEQ PO BID Electrolyte Replacement #30 Ref 0 TAB Rosuvastatin (Crestor) 10 Mg Tab 10 MG PO HS Cholesterol Management #30 Ref 0 TAB Tiotropium Inh (Spiriva Respimat Inh) 2.5 Mcg/Act Aero 2 PUFF INH DAILY 2.5 mcg = 1 inhalation COPD #1 Ref 0 INHALER Travoprost Opth Drops (Travatan Z Opth Drops) 0.004 % Soln 1 DROP EACH EYE HS Glaucoma #1 Ref 0 BOTTLE Zolpidem (Zolpidem) 5 Mg Tab 5 MG PO HS PRN INSOMNIA Ref 0 TAB Orlando Pope January 16, 2017 21:29
== END 2017-01-12 16:55 | disposition home health service (06) | DRG 470 ==
LOC: HSDI 01-11 05:10 → N06B 01-11 10:30
PROVIDERS: ADMIT Orthopaedic Surgery; ATTEND Orthopaedic Surgery
PROC: 0SR90JA Replacement of Right Hip Joint with Synthetic Substitute, Uncemented, Open Approach (ICD-10-PCS; principal; 2017-01-11 06:46)
DX: M16.11 Unilateral primary osteoarthritis, right hip (principal); J44.9 Chronic obstructive pulmonary disease, unspecified; I10 Essential (primary) hypertension; E78.5 Hyperlipidemia, unspecified
CPT/HCPCS: 73502; 76000; 85027; 86850; 86900; 86901; 94150; 94620; C1776; C9290; J0131; J0690; J1100; J1580; J1650; J2250; J2405; J3010; J3370; J7030; J7050; J7120

== ENCOUNTER 2018-03-14 06:54 | Inpatient (IN) ==
[2018-03-14] MEDS ORDERED: Dexamethasone Inj 20 MG/5 ML Vial ONE (08:10)
[2018-03-14] MEDS ORDERED: ceFAZolin 2 GM Premix Inj 2 GM/50 ML PIGGYBACK IV.SIG ONE (08:10)
[2018-03-14] MEDS ORDERED: Vancomycin Inj 1 GM/200 ML PIGGYBACK IV.SIG ONE (08:10)
[2018-03-14] MEDS ORDERED: Dexamethasone PF Inj 10 MG/ML Vial IV.PUSH SCH (08:45)
[2018-03-14] MEDS ORDERED: Chlorhexidine 4% Topical 120 APPLIC/120 ML Bottle TOPICAL SCH (08:45)
[2018-03-14] MEDS ORDERED: Sodium Chlor 0.9% Inj 40 ML, Bupivacaine Liposo PF 1.3% Inj 20 ML P-ARTICULR SCH ×2 (08:45)
[2018-03-14] MEDS ORDERED: Chlorhexidine Gluconate 2% 1 Pack (2 Cloths) TOPICAL SCH (08:45)
[2018-03-14] MEDS ORDERED: Metoprolol Tartrate 25 MG Tablet PO SCH (08:45)
[2018-03-14] MEDS ORDERED: Vancomycin Inj 1 GM/200 ML PIGGYBACK IV.SIG SCH (09:00)
[2018-03-14] MEDS ORDERED: Sodium Chlor 0.9% Inj 500 ML IV.SIG SCH (09:00)
[2018-03-14] MEDS ORDERED: ceFAZolin 2 GM Premix Inj 2 GM/50 ML PIGGYBACK IV.SIG SCH (09:00)
[2018-03-14] MEDS ORDERED: TRANEXAMIC ACID IV.SIG SCH (09:00)
[2018-03-14] MEDS ORDERED: SODIUM CHLOR 0.9% IV.SIG SCH (09:00)
[2018-03-14] MEDS ORDERED: Bupivacaine/Dextrose 0.75% Inj 2 ML Ampul ONE (09:39)
[2018-03-14] MEDS ORDERED: Ketamine Inj 50 MG/5 ML Syringe IV.PUSH ONE (09:52)
[2018-03-14] MEDS ORDERED: Dexmedetomidine Inj 200 MCG/2 ML Vial ONE (09:52)
[2018-03-14] MEDS ORDERED: Glycopyrrolate Inj 1 MG/5 ML Syringe IV.PUSH ONE (12:00)
[2018-03-14] MEDS ORDERED: guaiFENesin 600 MG ER Tablet PO PRN (12:27)
[2018-03-14] MEDS ORDERED: Morphine Inj 4 MG/ML Vial IV.PUSH PRN (12:33)
[2018-03-14] MEDS ORDERED: Bisacodyl 10 MG Supp RECTAL PRN (12:33)
[2018-03-14] MEDS ORDERED: Tranexamic Acid Inj 1,000 MG in Sodium Chlor 0.9% Inj 100 ML IV.SIG ONE (12:33)
[2018-03-14] MEDS ORDERED: Post-op Orders (for Pharmacy) OTHER STA (12:33)
--- NOTE | 2018-03-14 12:37 | P.OP ---
Date of procedure: 03/14/18 Procedure: Left total hip arthroplasty Surgeon: Chandan Benoit MD Treer: SETH Aviles The surgical procedure was assisted by my Advanced Registered Nurse Practitioner. My DRILL PRESS OPERATOR HELPER presence was necessary throughout this case for the manipulation and positioning of the surgical extremity. My DRILL PRESS OPERATOR HELPER was assisting me throughout the duration of this procedure. The skill set of an Advance Registered Nurse Practitioner was medically necessary to complete this procedure. During the surgical case, the surgical asst was working at the back table and the Advance Registered Nurse Practitioner was directly assisting me. Operation and Findings: IMPLANT DESCRIPTION: 1. Alum Bridge Gription Cup, acetabular size 56. 2. [place]um Bridge AltrX polyethylene, neutral. 4. Corail femoral stem size 12, no collar, high offset. 5. Femoral head/neck metal, 36, +5. ESTIMATED BLOOD LOSS: 200 cc. JUSTIFICATION FOR PROCEDURE: The patient has end-stage osteoarthritis to the hip. There is an attached conservative measures pathway form in the chart that describes the nonoperative measures that were undertaken prior to consideration of surgical management. The patient understood the risks and benefits of surgical management. See my office notes for further details. PROCEDURE: The patient was brought back to the operative theatre. Adequate anesthesia was obtained. The patient received intravenous vancomycin and Ancef. The patient was carefully placed on the operative table. The lower extremity was prepped and draped in the usual sterile fashion. Fluoroscopic images were obtained. We made a standard anterior incision over the hip. We dissected through the TFL fascia, exposing the anterior capsule. Arthrotomy was performed in a T-shaped fashion. The capsule was tagged with a #2 FiberWire. End-stage arthritis was identified. Osteotomy was performed through the femoral neck exposing the acetabulum. Remnants of the labrum were resected and osteophytes were removed. We sequentially reamed the acetabulum. We trialed the hip and placed the final cup into position. This was done under fluoroscopic guidance to obtain the appropriate inclination and anteversion. A manhole cover was placed into the acetabular component. We then placed the final polyethylene into position and confirmed that it was well seated. Capsular attachments on the calcar and the inner aspect of the greater trochanter were resected. On the proximal aspect of the femur we used a rongeur , box osteotome, canal finder, sequential broaches and lateralizing rasp. We calcar planed the proximal femur. Then thoroughly irrigated the wound. We trialed the hip with the appropriate size stem. We placed the final stem in to position and trialed again. The hip was stable while it was externally rotated 70 degrees when the leg was lowered to the floor. The final head was applied, and final fluoroscopic images were obtained. The wound was thoroughly irrigated again. Interarticular injection of liposomal bupivacaine was given. The capsule was closed with #2 FiberWire and #1 Vicryl. The deep fascia was closed with a #2 Stratafix, followed by 2-0 Vicryl in the skin and Dermabond dressing. Postop plan is to weight-bear as tolerated. DVT prophylaxis will be performed with SCDs, JAYDE wilkes, early mobilization, and Xarelto. The patient will be started on a reduced dose while in the hospital and will resume normal outpatient dose after discharge.
[2018-03-14] MEDS ORDERED: fentaNYL Citrate Inj 100 MCG/2 ML Ampul ONE (12:59)
--- NOTE | 2018-03-14 13:19 | XR ---
EXAM DATE: 03/14/2018 12:40 PM EDT AGE/SEX: 77 years / Male INDICATIONS: Left total hip replacement. CLINICAL DATA: This is the patient's initial encounter. Patient reports that signs and symptoms have been present for 1 day and indicates a pain score of Nonresponsive. MEDICAL/SURGICAL HISTORY: Non-responsive. Non-responsive. COMPARISON: No prior exams available for comparison. FINDINGS: The patient is status post a total hip arthroplasty. Prosthesis is well-seated. Alignment is anatomic . A fracture is not appreciated. CONCLUSION: Anatomic alignment on AP fluoroscopic spot film.. Alfredo Braun MD FACR Electronically signed by: Alfredo Braun MD 03/14/2018 1:17 PM EDT
--- NOTE | 2018-03-14 13:50 | XR ---
EXAM DATE: 03/14/2018 1:44 PM EDT AGE/SEX: 77 years / Male INDICATIONS: Post operation for left hip replacement. CLINICAL DATA: This is the patient's initial encounter. Patient reports that signs and symptoms have been present for 1 day and indicates a pain score of 2/10. MEDICAL/SURGICAL HISTORY: None. . Hip replacement, right. COMPARISON: [facility] – [place], HIP RIGHT (AP&LAT 2/3VWS) W AP PELVIS, 01/11/2017. . FINDINGS: Status post total hip arthroplasty on the left. Prosthesis well seated. Alignment anatomic and 2 proj ections. Moderate vascular calcifications are noted. Old prosthesis noted on the right. CONCLUSION: Anatomic alignment in 2 projections. Electronically signed by: Alfredo Braun MD 03/14/2018 1:48 PM EDT
[2018-03-14] MEDS: Sod Chloride 0.9% Inj 1,000 ML IV.CONT SCH (15:00)
[2018-03-14] MEDS ORDERED: Dextrose 50% in Water 50 ML Vial IV.PUSH PRN (17:45)
[2018-03-14] MEDS: LORazepam 1 MG Tablet PO SCH (17:52)
[2018-03-14] MEDS ORDERED: Latanoprost 0.005% Opth Drops 2.5 ML Bottle EACH EYE SCH (18:00)
--- NOTE | 2018-03-14 18:14 | P.CON ---
History of Present Illness Primary Care Provider: Andrew Smith Family Provider: Andrew Smith Chief Complaint: Left hip pain History of Present Illness: This is a 77-year-old male who complains of severe left hip pain affecting his activities of daily living. He has severe osteoarthritis underwent arthroplasty by Dr. Benoit who requested consultation to evaluate and manage multiple medical conditions. Anesthesia records reviewed he was hemodynamically stable received 1100 crystalloid and EBL of 100 mL. Patient has history of newly diagnosed paroxysmal A. fib controlled on diltiazem and Xarelto, COPD chronic respiratory failure on home oxygen on scheduled nebulizations at least 4 times a day, hypertension controlled on Lasix and hyperlipidemia also controlled on Lipitor. He also has diabetes on metformin he does not know his latest A1c. All other systems reviewed negative Review of Systems All other systems reviewed negative except as stated in HPI PMFSH - History History Provided By: Patient, Significant Other - Medical History Medical History: Medical History (Last Reviewed 03/14/18 @ 15:54 by Matilda Valentino RN) A-fib COPD (chronic obstructive pulmonary disease) Cholecystectomy planned Glaucoma Hypertension Neck pain On home oxygen therapy Presence of orthopedic joint implant - Surgical History Surgical History: Surgical History (Last Reviewed 03/14/18 @ 15:54 by Matilda Valentino RN) H/O cataract removal with insertion of prosthetic lens History of total right hip replacement Hx of adenoidectomy Hx of tonsillectomy Status post bronchoscopy - Family History Family History: Family History (Last Updated 03/14/18 @ 18:11 by Josh Parham MD) Other Myocardial infarction - Tobacco History Second Hand Smoke Exposure: No Tobacco Use In Past 30 Days: No Smoking Status: Former smoker Tobacco Type: Cigarettes - Alcohol History How Often Do You Have a Drink Containing Alcohol: 2 to 3 times a week - Substance Use History Substance History: No History of Abuse - Travel History Recent Travel in the [place] Within the Last 8 Weeks: No Recent Travel Out of the Country Within the Last 8 Weeks: No - Immunization History Tetanus Immunization: Unsure Hx Influenza Vaccine This Season: Yes Medications and Allergies Active Medications: Active Medications Hydrocodone Bitart/Acetaminophen (Porum 5/325) 1 tab PO Q4H PRN PRN Reason: PAIN LESS THAN 5 ON SCALE Last Admin: 03/14/18 15:50 Dose: 1 tab Hydrocodone Bitart/Acetaminophen (Porum 5/325) 2 tab PO Q6H PRN PRN Reason: PAIN SCALE 5 TO 10 Al Hydroxide/Mg Hydroxide (Milk Of Magnlori Liq) 30 ml PO BID PRN PRN Reason: Mild Constipation Albuterol (Ventolin Hfa Inh) 2 puff INH Q4H PRN PRN Reason: Shortness Of Breath Albuterol (Albuterol Neb (Prn)) 1.25 mg NEB Q2HR NEB PRN PRN Reason: SHORTNESS OF BREATH/WHEEZING Albuterol (Duoneb Neb (Prn)) 1 ampul INH BID NEB [facility] Atorvastatin Calcium (Lipitor) 20 mg PO DAILY [facility] Bisacodyl (Dulcolax Supp) 10 mg RECTAL DAILY PRN PRN Reason: SEVERE CONSITIPATION Brimonidine Tartrate (Alphagan P 0.15% Opth Drops) drops EACH EYE DIRECTED [facility] Chlorhexidine Gluconate (Chlorhexidine 2% Cloth) 3 pack TOPICAL GUN EXAMINER [facility] Stop: 03/17/18 08:38 Chlorhexidine Gluconate (Hibiclens 4% Topical) 1 applicatio TOPICAL ONCE [facility] Stop: 03/18/18 08:44 Last Admin: 03/14/18 07:20 Dose: 1 applicatio Sodium Chloride 40 ml/ (Bupivacaine Liposome 20 ml) 0 ml P-ARTICULR ONCE [facility] Last Admin: 03/14/18 11:20 Dose: 60 bag Dexamethasone Sodium Phosphate (Decadron Inj) 10 mg IV.PUSH ONCE ONE Stop: 03/15/18 08:01 Dextrose (D50w Vial) 50 ml IV.PUSH UNSCH PRN PRN Reason: PER HYPOGLYCEMIA PROTOCOL Diltiazem HCl (Cardizem Cd 24hr) 240 mg PO DAILY [facility] Diphenhydramine HCl (Benadryl) 25 mg PO Q6H PRN PRN Reason: ITCHING Dorzolamide HCl (Trusopt 2% Opth Drops) drop EACH EYE DIRECTED [facility] Fluticasone/Vilanterol (Breo Ellipta 100/25 Mcg Inh) 1 puff INH DAILY [facility] Furosemide (Lasix) 40 mg PO DAILY [facility] Glucagon (Glucagon Inj) 1 mg OTHER PRN PRN PRN Reason: for Hypoglycemia Protocol Guaifenesin (Mucinex Er) 600 mg PO Q12H PRN PRN Reason: COUGH Sodium Chloride (Ns Inj) 500 mls @ 30 mls/hr IV.SIG .Q10H [facility] Stop: 03/17/18 08:38 Tranexamic Acid 816 mg/ Sodium (Chloride) 108.16 mls @ 200 mls/hr IV.SIG ONCE [facility] Stop: 03/15/18 08:59 Last Infusion: 03/14/18 11:13 Dose: Infused Vancomycin/Sodium Chloride (Vancomycin Inj) 1 gm in 200 mls @ 200 mls/hr IV.SIG GUN EXAMINER [facility] Stop: 03/18/18 08:59 Last Infusion: 03/14/18 11:06 Dose: Infused Cefazolin Sodium 1,000 mg/ (Sodium Chloride) 100 mls @ 200 mls/hr IV.SIG Q6H [facility] Stop: 03/15/18 04:29 Last Infusion: 03/14/18 16:18 Dose: Infused Sodium Chloride (Ns Inj) 1,000 mls @ 50 mls/hr IV.CONT .Q20H [facility] Last Admin: 03/14/18 15:00 Dose: 30 mls/hr Insulin Aspart (Novolog Insulin Suppl Scale Inj) 0 unit SQ ACHS [facility]; Protocol Lactulose (Lactulose Liq) 30 ml PO DAILY PRN PRN Reason: SEVERE CONSITIPATION Latanoprost (Xalatan 0.005% Opth Drops) 1 drop EACH EYE QPM [facility] Lorazepam (Ativan) 1 mg PO TID [facility] Last Admin: 03/14/18 17:52 Dose: Not Given Metformin HCl (Glucophage) 1,000 mg PO BIDPC [facility] Last Admin: 03/14/18 17:46 Dose: 1,000 mg Metoprolol Tartrate (Lopressor) 25 mg PO G[employer] EXAMINER [facility] Stop: 03/17/18 08:38 Miscellaneous Information ([facility] Nursing Information) 1 each OTHER UNSCH PRN PRN Reason: SEE LABEL COMMENTS Stop: 03/15/18 14:44 Morphine Sulfate (Morphine Inj) 2 mg IV.PUSH Q3H PRN PRN Reason: BREAKTHROUGH PAIN Multivitamins/Minerals (Theragran-M) 1 tab PO BID [facility] Stop: 05/13/18 20:59 Ptownmed(Tiotropium [place] [Spiriva Respimat] 2 Puff) 0 puff INHALATION DAILY [facility] Ondansetron HCl (Zofran Odt) 4 mg PO Q6H PRN PRN Reason: NAUSEA OR VOMITING Pantoprazole Sodium (Protonix) 20 mg PO DAILY [facility] Potassium Chloride (Klor-Con 10) 10 meq PO DAILY [facility] Povidone Iodine (Betadine 5% Antisepsis Kit) 1 applicatio EACH NARE GUN EXAMINER [facility] Stop: 03/17/18 08:38 Povidone Iodine (Betadine 7.5% Scrub) 1 applicatio TOPICAL ONCE [facility] Stop: 03/18/18 08:59 Prednisone (Deltasone) 10 mg PO DAILY [facility] Rivaroxaban (Xarelto) 10 mg PO Q24H [facility] Senna/Docusate Sodium (Camelia-Colace) 1 tab PO BID [facility] Sennosides (Senokot) 17.2 mg PO BID PRN PRN Reason: Moderate Constipation Sodium Chloride (Ns Flush) 2 ml IV.FLUSH BID [facility] Sodium Chloride (Ns Flush) 2 ml IV.FLUSH PRN PRN PRN Reason: FLUSH AFTER USING IV ACCESS Zolpidem Tartrate (Ambien) 5 mg PO HS PRN PRN Reason: INSOMNIA Allergies Allergy/AdvReac Type Severity Reaction Status Date / Time No Known Allergies Allergy Unverified 03/14/18 07:47 Home Medications Medication Instructions Recorded Confirmed Type albuterol sulfate [ProAir HFA] 2 puff INHALATION Q4-6H PRN 03/05/18 03/14/18 History brimonidine 1 drp OPHTHALMIC (EYE) DIRECTED 03/05/18 03/14/18 History diltiazem HCl 240 mg PO DAILY 03/05/18 03/14/18 History dorzolamide 1 drp OPHTHALMIC (EYE) DIRECTED 03/05/18 03/14/18 History fluticasone-vilanterol [Breo 1 inh INHALATION DAILY 03/05/18 03/14/18 History Ellipta] furosemide [Lasix] 40 mg PO DAILY 03/05/18 03/14/18 History guaifenesin [Mucinex] 600 mg PO Q12H PRN 03/05/18 03/14/18 History ipratropium-albuterol 3 ml INHALATION Q6-8H PRN 03/05/18 03/14/18 History potassium chloride 10 meq PO DAILY 03/05/18 03/14/18 History prednisone 10 mg PO DAILY 03/05/18 03/14/18 History rivaroxaban [Xarelto] 20 mg PO DAILY 03/05/18 03/14/18 History rosuvastatin [Crestor] 10 mg PO DAILY 03/05/18 03/14/18 History tiotropium bromide [Spiriva 2 puff INHALATION DAILY 03/05/18 03/14/18 History Respimat] travoprost [Travatan Z] 1 drp OPHTHALMIC (EYE) QPM 03/05/18 03/14/18 History lorazepam 1 mg PO TID 03/14/18 03/14/18 History metformin 1,000 mg PO BID 03/14/18 03/14/18 History omeprazole magnesium [Prilosec OTC] 20 mg PO DAILY 03/14/18 03/14/18 History Physical Exam Vital signs: Vital Signs 03/14/18 07:57 03/14/18 12:51 03/14/18 13:00 Temperature 98.9 F 97.4 F L Pulse Rate 86 70 66 Respiratory Rate 18 14 14 Blood Pressure 146/86 H 130/83 133/80 Pulse Oximetry 95 94 L 93 L 03/14/18 13:15 03/14/18 13:30 03/14/18 13:45 Temperature Pulse Rate 66 66 66 Respiratory Rate 14 14 14 Blood Pressure 124/71 132/62 127/68 Pulse Oximetry 94 L 95 96 03/14/18 14:00 03/14/18 14:15 03/14/18 14:30 Temperature 98.1 F Pulse Rate 64 65 68 Respiratory Rate 14 14 14 Blood Pressure 122/72 128/78 125/65 Pulse Oximetry 96 96 97 03/14/18 14:45 03/14/18 16:20 03/14/18 17:30 Temperature Pulse Rate 75 Respiratory Rate 18 16 Blood Pressure Pulse Oximetry 97 03/14/18 17:43 Temperature 97.1 F L Pulse Rate 76 Respiratory Rate 18 Blood Pressure 113/66 Pulse Oximetry 94 L Intake & Output 03/13/18 03/14/18 03/14/18 18:59 06:59 18:59 Intake Total 1558.16 / 1558.16 Output Total 450 / 450 Balance 1108.16 / 1108.16 Weight 81.6 kg Intake: IV 458.16 / 458.16 Cyklokapron Inj 816 MG In NS 108.16 / 108.16 Inj 100 ML @ 200 mls/hr IV.SIG ONCE [facility] Rx#:[id number] Vancomycin Inj 1 gm In 200 ml @ 200 / 200 200 mls/hr IV.SIG GUN EXAMINER [facility] Rx#:[id number] Ancef 2 GM Premix Inj 2 gm In 50 / 50 50 ml @ 100 mls/hr IV.SIG GUN EXAMINER [facility] Rx#:[id number] Ancef Inj 1,000 MG In NS Inj 100 / 100 100 ML @ 200 mls/hr IV.SIG Q6H [facility] Rx#:[id number] Anesthesia Amount 1100 / 1100 Output: Urine 350 / 350 Estimated Blood Loss 100 / 100 Other: # Voids 2 Date of Last Bowel Movement 03/13/18 Weight On Admission 81.6 kg Narrative: GENERAL: Well-developed and well-nourished in no distress SKIN: Warm and dry. HEAD: Atraumatic. Normocephalic. EYES: Pupils equal and round. No scleral icterus. No injection or drainage. ENT: No nasal bleeding or discharge. Mucous membranes pink and moist. NECK: Trachea midline. No JVD. CARDIOVASCULAR: Regular rate and rhythm. RESPIRATORY: No accessory muscle use. Clear to auscultation. Breath sounds equal bilaterally. GASTROINTESTINAL: Abdomen soft, non-tender, nondistended. MUSCULOSKELETAL: Extremities without clubbing, cyanosis, or edema. No obvious deformities. Dry dressing left hip NEUROLOGICAL: Awake and alert. No obvious cranial nerve deficits. Motor grossly within normal limits. Five out of 5 muscle strength in the arms and legs. Normal speech. PSYCHIATRIC: Appropriate mood and affect; insight and judgment normal. Assessment and Plan - Plan This is a 77-year-old male who complains of severe left hip pain affecting his activities of daily living. He has severe osteoarthritis underwent arthroplasty by Dr. Benoit who requested consultation to evaluate and manage multiple medical conditions. He is stable continue postoperative care with wound care, physical therapy, incentive spirometry, pain management with Lortab and IV morphine and DVT prophylaxis with Xarelto. Newly diagnosed paroxysmal A. fib controlled on diltiazem and Xarelto. EKG tracing with fib/flutter with poor R wave progression. He has been cleared for surgery by his hotel staff member COPD chronic respiratory failure on home oxygen on scheduled nebulizations at least 4 times a day. Stable Hypertension controlled on Lasix. Will monitor Hyperlipidemia also controlled on Lipitor. Diabetes on metformin he does not know his latest A1c. Monitor fingersticks with coverage Discharge Planning: per ortho
[2018-03-14] MEDS ORDERED: Zolpidem Tartrate 5 MG Tablet PO PRN (21:00)
[2018-03-14] MEDS: Senna/Docusate Sodium 8.6/50 MG Tablet PO SCH (21:51)
[2018-03-14] MEDS: Insulin NovoLOG Aspart Correctional Sugar Inj SQ SCH (21:53)
[2018-03-14] MEDS: Multivitamin/Minerals Therapeutic Tablet PO SCH (21:54)
[2018-03-14] MEDS: Dorzolamide 2% Opth Drops 10 ML Bottle EACH EYE SCH (23:46)
[2018-03-14] MEDS: Brimonidine 0.15% Opth Drops 5 ML Bottle EACH EYE SCH (23:47)
[2018-03-15 06:45] LABS: Hematocrit 34.6 % (39.0-51.0); Hemoglobin 11.5 gm/dL (13.0-17.0)
[2018-03-15] MEDS ORDERED: Dexamethasone Inj 20 MG/5 ML Vial IV.PUSH ONE (08:00)
[2018-03-15] MEDS: Senna/Docusate Sodium 8.6/50 MG Tablet PO SCH (08:26)
[2018-03-15] MEDS: LORazepam 1 MG Tablet PO SCH ×2 (08:26→12:37)
[2018-03-15] MEDS: Multivitamin/Minerals Therapeutic Tablet PO SCH (08:26)
[2018-03-15] MEDS: Sod Chloride 0.9% Inj 1,000 ML IV.CONT SCH (08:28)
[2018-03-15] MEDS: Dorzolamide 2% Opth Drops 10 ML Bottle EACH EYE SCH (08:28)
[2018-03-15] MEDS: Insulin NovoLOG Aspart Correctional Sugar Inj SQ SCH ×2 (08:28→13:06)
[2018-03-15] MEDS: Brimonidine 0.15% Opth Drops 5 ML Bottle EACH EYE SCH (08:28)
[2018-03-15] MEDS ORDERED: TIOTROPIUM BROMIDE INHALATION SCH (09:00)
[2018-03-15] MEDS ORDERED: predniSONE 10 MG Tablet PO SCH (09:00)
[2018-03-15] MEDS ORDERED: Pantoprazole Sodium 20 MG DR Tablet PO SCH (09:00)
[2018-03-15] MEDS ORDERED: dilTIAZem CD 240 MG Capsule PO SCH (09:00)
[2018-03-15] MEDS ORDERED: Furosemide 40 MG Tablet PO SCH (09:00)
[2018-03-15] MEDS ORDERED: [UNRECOGNIZED DRUG - OTHER] INHALATION SCH (09:00)
--- NOTE | 2018-03-15 11:10 | P.PN ---
Subjective Interval history: Follow-up hip surgery. States he is doing okay ambulating. Positive bowel movement. Physical Exam Vital signs: Vital Signs 03/14/18 12:51 03/14/18 13:00 03/14/18 13:15 Temperature 97.4 F L Pulse Rate 70 66 66 Respiratory Rate 14 14 14 Blood Pressure 130/83 133/80 124/71 Pulse Oximetry 94 L 93 L 94 L 03/14/18 13:30 03/14/18 13:45 03/14/18 14:00 Temperature Pulse Rate 66 66 64 Respiratory Rate 14 14 14 Blood Pressure 132/62 127/68 122/72 Pulse Oximetry 95 96 96 03/14/18 14:15 03/14/18 14:30 03/14/18 14:45 Temperature 98.1 F Pulse Rate 65 68 Respiratory Rate 14 14 Blood Pressure 128/78 125/65 Pulse Oximetry 96 97 97 03/14/18 16:20 03/14/18 17:30 03/14/18 17:43 Temperature 97.1 F L Pulse Rate 75 76 Respiratory Rate 18 16 18 Blood Pressure 113/66 Pulse Oximetry 94 L 03/14/18 20:00 03/14/18 21:31 03/14/18 21:40 Temperature 97.9 F Pulse Rate 73 79 Respiratory Rate 18 16 Blood Pressure 146/69 H Pulse Oximetry 95 95 03/15/18 00:00 03/15/18 04:00 03/15/18 08:00 Temperature 97.7 F 97.8 F 97.7 F Pulse Rate 80 88 95 H Respiratory Rate 18 18 18 Blood Pressure 146/75 H 142/81 H 164/77 H Pulse Oximetry 95 95 92 L 03/15/18 10:37 Temperature Pulse Rate 77 Respiratory Rate 16 Blood Pressure Pulse Oximetry Intake & Output 03/14/18 03/15/18 03/15/18 18:59 06:59 18:59 Intake Total 1558.16 / 1558.16 200 / 200 Output Total 450 / 450 Balance 1108.16 / 1108.16 200 / 200 Weight 81.6 kg Intake: IV 458.16 / 458.16 200 / 200 Cyklokapron Inj 816 MG In NS 108.16 / 108.16 Inj 100 ML @ 200 mls/hr IV.SIG ONCE [facility] Rx#:[id number] Vancomycin Inj 1 gm In 200 ml @ 200 / 200 200 mls/hr IV.SIG SALES DEVELOPMENT CONSULTANT [facility] Rx#:[id number] Ancef 2 GM Premix Inj 2 gm In 50 / 50 50 ml @ 100 mls/hr IV.SIG SALES DEVELOPMENT CONSULTANT [facility] Rx#:[id number] Ancef Inj 1,000 MG In NS Inj 100 / 100 200 / 200 100 ML @ 200 mls/hr IV.SIG Q6H [facility] Rx#:[id number] Anesthesia Amount 1100 / 1100 Output: Urine 350 / 350 Estimated Blood Loss 100 / 100 Other: # Voids 2 Date of Last Bowel Movement 03/13/18 03/13/18 Weight On Admission 81.6 kg Narrative: GENERAL: Well-developed and well-nourished in no distress SKIN: Warm and dry. CARDIOVASCULAR: Regular rate and rhythm. RESPIRATORY: No accessory muscle use. Clear to auscultation. Breath sounds equal bilaterally. GASTROINTESTINAL: Abdomen soft, non-tender, nondistended. MUSCULOSKELETAL: Extremities without clubbing, cyanosis, or edema. No obvious deformities. Dry dressing left hip NEUROLOGICAL: Awake and alert. No obvious cranial nerve deficits. Motor grossly within normal limits. Five out of 5 muscle strength in the arms and legs. Normal speech. Results - Labs CBC & Chem 7: 03/15/18 05:20 Laboratory Results - last 24 hr 03/14/18 03/14/18 03/15/18 15:45 21:44 05:20 Hgb 11.5 L Hct 34.6 L POC Glucose 227 H 209 H 03/15/18 07:49 Hgb Hct POC Glucose 150 H - Imaging Impressions Hip X-Ray 03/14/18 00:00 CONCLUSION: Anatomic alignment in 2 projections. Hip X-Ray 03/14/18 00:00 CONCLUSION: Anatomic alignment on AP fluoroscopic spot film.. Alfredo Braun MD FACR Assessment and Plan - Plan This is a 77-year-old male who complains of severe left hip pain affecting his activities of daily living. He has severe osteoarthritis underwent arthroplasty by Dr. Benoit who requested consultation to evaluate and manage multiple medical conditions. He is stable continue postoperative care with wound care, physical therapy, incentive spirometry, pain management with Lortab and IV morphine and DVT prophylaxis with Xarelto. Newly diagnosed paroxysmal A. fib controlled on diltiazem and Xarelto. EKG tracing with fib/flutter with poor R wave progression. He has been cleared for surgery by his entry level assistant manager. Resume therapeutic dose of Xarelto when okay by orthopedic surgery COPD chronic respiratory failure on home oxygen on scheduled nebulizations at least 4 times a day. Stable Hypertension controlled on Lasix. Will monitor Hyperlipidemia also controlled on Lipitor. Diabetes on metformin he does not know his latest A1c. Monitor fingersticks with coverage. Stable Discharge Planning: per ortho
[2018-03-15] MEDS ORDERED: Rivaroxaban 10 MG Tablet PO SCH (11:49)
--- NOTE | 2018-03-15 19:50 | P.DCO ---
- Physical Therapy Physical Therapy: Gait training, Transfer training, bed to chair Hip: Total hip Left Lower Extremity Weight Bearing: Weight bearing as tolerated Left Lower Extremity Range of Motion: Active ROM - Nursing Dressing changes: Do not change dressing Additional instructions: First dressing change in office - Certification Need for Home Health services: I have seen patient Carlitos Alves on 03/15/18. My clinical findings support the need for the requested home health care services because: Need for Home Health Services: Deconditioned with increased weakness, High risk of falls Homebound Certification: I certify that my clinical findings support that this patient is homebound because: Homebound Certification: Post-op weakness, Unsteady gait/balance
--- NOTE | 2018-03-19 17:21 | P.DS ---
Date of admission: 03/14/18 06:54 Primary care physician: Andrew Smith Attending physician on discharge: Chandan Benoit Anticipated date of discharge: 03/15/18 Brief History from admission: The patient has a history of LEFT hip severe osteoarthritis DS: Diagnosis - Discharge Diagnosis (1) Primary localized osteoarthritis of left hip Status: Acute (2) Status post total hip replacement, left Status: Acute DS: Summary Hospital Course: The patient was admitted to the hospital with severe osteoarthritis of the LEFT hip to have a LEFT total hip arthroplasty. The patient is weightbearing as tolerated on the LEFT lower extremity. The patient is discharged home with Xarelto for DVT prophylaxis. The patient was discharged home with home health. The patient will follow up in the office as previously scheduled with Dr. Benoit or SETH Mendoza. - Time Spent with Patient Total time spent providing and/or coordinating discharge services: - Quality: VTE Deep Vein Thrombosis/Pulmonary Embolism Present on Admission: No Results Procedures completed during hospitalization: LEFT total hip arthroplasty - Impressions ITS Impressions Hip X-Ray 03/14/18 00:00 CONCLUSION: Anatomic alignment in 2 projections. Discharge Plan - Discharge Disposition Patient Disposition: W/Home Health Service - Discharge Condition Condition: Stable - Discharge Order Discharge Orders: Discharge Order (Routine); Ordered 03/14/18 Ordered By: Orlando Pope - Discharge Details Anticipated Discharge Date: 03/15/18 Discharge Comment: F/U in the office as previously scheduled with Dr. Benoit or SETH Mendoza - Physicians Team Primary Care Provider: Andrew Smith Attending Provider: Chandan Benoit Other Providers: Quintin Jones MD ; Rolando Trent MD ; Josh Parham MD - Rxs /Orders / Referrals /Forms Prescriptions: Continue albuterol sulfate [ProAir HFA] 90 mcg/actuation Hfa Aerosol Inhaler 2 puff INHALATION Q4-6H PRN (Reason: Shortness Of Breath) brimonidine 0.15 % Drops 1 drp OPHTHALMIC (EYE) DIRECTED diltiazem HCl 240 mg Capsule,Extended Release 24 Hr 240 mg PO DAILY dorzolamide 2 % Drops 1 drp OPHTHALMIC (EYE) DIRECTED fluticasone-vilanterol [Breo Ellipta] 100-25 mcg/dose Blister With Device 1 inh INHALATION DAILY furosemide [Lasix] 40 mg Tablet 40 mg PO DAILY guaifenesin [Mucinex] 600 mg Tablet Extended Release 12hr 600 mg PO Q12H PRN (Reason: Cough) ipratropium-albuterol 0.5 mg-3 mg(2.5 mg base)/3 mL Solution For Nebulization 3 ml INHALATION Q6-8H PRN (Reason: Shortness Of Breath) lorazepam 1 mg Tablet 1 mg PO TID metformin 1,000 mg Tablet 1,000 mg PO BID omeprazole magnesium [Prilosec OTC] 20 mg Tablet,Delayed Release (Dr/Ec) 20 mg PO DAILY potassium chloride 10 mEq Tablet,Er Particles/Crystals 10 meq PO DAILY prednisone 10 mg Tablet 10 mg PO DAILY rosuvastatin [Crestor] 10 mg Tablet 10 mg PO DAILY tiotropium bromide [Spiriva Respimat] 2.5 mcg/actuation Mist 2 puff INHALATION DAILY travoprost [Travatan Z] 0.004 % Drops 1 drp OPHTHALMIC (EYE) QPM Discontinued rivaroxaban [Xarelto] 20 mg Tablet 20 mg PO DAILY Ambulatory Orders / Order Sets / DME: Adjustable Commode 3-in-1 (1 each) (Routine) Location: Determined by Patient Ordered By: Orlando Pope Walker With Front Wheels (1 each) (Routine) Location: Determined by Patient Ordered By: Orlando Pope Referrals: Andrew Smith MD [Primary Care Provider] - See Instructions - Discharge Instructions Additional Instructions: FOLLOW UP WITH SCHEDULED. CALL DRJamshid IF ANY SIGNS & SYMPTOMS OF INFECTION. IN CASE OF EMERGENCY RETURN TO EMERGENCY ROOM OR CALL 911. - Post Discharge Care Plan Care Plan Goals: Discharge Care Plan Goals for Total Hip Replacement You had a hip replacement surgery. This means your natural hip was replaced with an artificial joint (prosthesis). You may be recovering at home or in a rehabilitation facility. Either way, you must take care of your new hip. Here are some goals to help you heal well. Directions to Meet your Goals: 1. Activity & Exercises: * Take pain medicine as directed by your doctor. * Dont drive until your doctor says its OK. And never drive while taking opioid pain medicine. * Wear the support stockings you were given in the hospital as directed by your surgeon. * Dont sit for more than 30 to 45 minutes at one time. * Dont lean forward while sitting. * Dont cross your legs. * Keep your feet flat on the floor. Dont turn your foot or leg inward. This stresses your hip joint. * Use an elevated toilet seat for 6 weeks after surgery. * Nap if you are tired, but dont stay in bed all day. * Sit on a firm cushion when you ride in a car and avoid sitting too low. Try not to bend your hip too much when getting in and out of the car. 2. Prevent Falls/Injury: * Follow your doctors orders regarding how much weight to put on the affected leg. * Dont bend at the hip when you bend over. Don't bend at the waist to put on socks and shoes. And avoid picking up items from the floor. * Use a cane, crutches, a walker, or handrails until your balance, flexibility, and strength improve. And remember to ask for help from others when you need it. * Free up your hands so that you can use them to keep balance. Use a linh pack , apron, or pockets to carry things. * Arrange your household to keep the items you need handy. Keep everything else out of the way. * Remove items that may cause you to fall, such as throw rugs and electrical cords. * Use nonslip bath mats, grab bars, an elevated toilet seat, and a shower chair in your bathroom * Sit on a shower stool or chair when you shower to keep from falling. 3. Precautions: * Prevent infection. Any infection will need to be treated immediately. Call your doctor right away if you think you might have an infection. * Tell your dentist that you have an artificial joint and take antibiotics as prescribed before any dental work. * Tell all your healthcare providers about your artificial joint before any medical procedure. * Maintain a healthy weight. Get help to lose any extra pounds. Added body weight puts stress on the joints. 4. Incision Care: * Prevent infection by washing your hands often. If an infection occurs, it will need to be treated right away. * Call your doctor right away if you think you may have an infection. Symptoms include a fever or an incision that leaks white, green, or yellow fluid. * Don't soak your incision in water until your doctor says its OK. This means no hot tubs, bathtubs, or swimming pools. * Follow your doctor's instructions for changing the dressing. * Dont rub the incision, or apply creams or lotions to it. * If you notice any redness or drainage around the bandage site, contact your surgeon's office immediately. 5. Follow-Up: Do Not miss your follow-up appointment. Keep up with all your appointments and yearly check ups When to call your doctor: Call your doctor right away if you have: Hip pain gets worse Pain or swelling in your calf or leg not related to your incision Tenderness or redness in your calf Fever of 100.4F (38C) or higher, or as directed by your healthcare provider Shaking chills Swelling or redness at the incision site gets worse Fluid draining from the incision Call 911: Call 911 right away if you have: Chest pain Shortness of breath Any pain or tenderness in your calf
== END 2018-03-15 16:36 | disposition home health service (06) ==
LOC: HSDI 06:54 → N06 14:53
PROVIDERS: ADMIT Orthopaedic Surgery; ATTEND Orthopaedic Surgery